=== PATIENT | male | born 1975 | race Two or more races ===

== ENCOUNTER 2024-09-26 16:39 | Emergency (ER) | payer BC, SELFPAY ==
[2024-09-26 16:47] VITALS: BP 139/89; PULSE 74; RESP 20; TEMP 36.9; O2SAT 99; BMI 30.4
--- NOTE | 2024-09-26 16:55 | EDNOTE_ITS ---
Upper Respiratory Inf. RME/HPI General Chief Complaint: Flu Like Symptoms Stated Complaint: FEVER, COUGH, SOB, RIGHT ARM NUMBNESS Time Seen by Provider: 09/26/24 16:43 Arrival date/time: 09/26/24 16:39 49-year-old male with no previous history of lung disorders presents today with complaints of cough and shortness of breath. Patient is currently being treated by primary care provider with azithromycin for acute sinusitis. Patient states he completed the course of Zithromax and then the cough started today he suddenly developed shortness of breath and felt as if he was going to have a syncopal episode. Patient denies any chest pain nausea vomiting fever chills weakness or fatigue. Patient states that he has been taking [id number] medications for the cough with no improvement of symptoms Limitations: no limitations Related Data Previous Rx's ?Medication ?Instructions ?Recorded methylprednisolone 4 mg tablets in 4 mg PO QDAY #21 tabs 05/03/23 a dose pack (Methylpred DP) promethazine 6.25 mg-codeine 10 5 ml PO Q6H PRN cough #118 mL 09/26/24 mg/5 mL syrup Allergies Allergy/AdvReac Type Severity Reaction Status Date / Time No Known Allergies Allergy Verified 05/03/23 11:35 Review of Systems Constitutional Constitutional: Denies chills, Denies fever(s) and Denies headache(s) ENT Ears, Nose, Mouth, and Throat: Denies headache(s) Cardiovascular Cardiovascular: Denies chest pain and Reports dyspnea Respiratory Respiratory: Reports cough and Reports dyspnea Gastrointestinal Gastrointestinal: Denies nausea Musculoskeletal Musculoskeletal: Denies back pain and Denies joint swelling Integumentary/Breasts Skin/Breast: Reports erythema and Reports rash Neurologic Neurologic: Denies confusion and Denies headache(s) Psychiatric Psychiatric: Denies confusion Hematologic/Lymphatic Hematologic/Lymphatic: Denies easy bleeding and Denies easy bruising ED Exam General Limitations: Present no limitations General appearance: Present alert and in no apparent distress Head Head exam: Present atraumatic Eye Eye exam: Present normal appearance, PERRL and EOMI ENT ENT exam: Present normal exam, normal oropharynx and mucous membranes moist Neck Neck exam: Present normal inspection, full ROM and trachea midline Chest Chest inspection: Present normal inspection and symmetric chest wall rise Respiratory Respiratory exam: Present normal lung sounds bilaterally Cardiovascular Cardiovascular exam: Present regular rate, normal rhythm and normal heart sounds Abdominal Exam Abdominal exam: Present soft and normal bowel sounds Extremities Exam Extremities exam: Present normal inspection and full ROM Back Exam Back exam: Present normal inspection and full ROM Neurological Exam Neurological exam: Present alert, oriented X3 and CN II-XII intact Psychiatric Psychiatric exam: Present normal affect and normal mood Skin Skin exam: Present warm, dry, intact and normal color Course Course Course Narrative: 49-year-old male reports with complaints of shortness of breath. Chest x-ray is negative for infiltrates or opacities patient repeat received an albuterol neb treatment which patient reports he is feeling much better is able to take deep breaths and lungs are clear to auscultation bilaterally oxygen saturations are above 95%. Patient is currently being treated for sinusitis so differential diagnosis includes sinusitis upper respiratory infection versus lower respiratory infection versus flu versus COVID versus RSV. Patient is stable nontoxic pain with stable vital signs will be discharged home Quality Measures none Orders Category Date Time Status XR chest 2V Stat Exams 09/26/24 16:55 Completed ALBUTEROL RT 0.5ml [Proventil Rt 0.5ml] Med 09/26/24 17:17 Discontinued 2.5 mg INH X1 ONE Sodium Chloride Rt Cece 0.9% [NS Rt Cece 0.9%] Med 09/26/24 17:17 Active 3 ml INH PRN PRN Vital Signs Vital signs: Vital Signs Temperature 98.5 F 09/26/24 16:47 Pulse Rate 74 09/26/24 16:47 Respiratory Rate 20 09/26/24 16:47 Blood Pressure 139/89 H 09/26/24 16:47 Pulse Oximetry (%) 99 09/26/24 16:47 Oxygen Delivery Method Room Air 09/26/24 16:47 Upper Respiratory Infection Patient data External records reviewed:: None Clinical information provided by:: patient Social determinants that could affect healthcare access:: none Patient has the following chronic illnesses:: none How is presenting disease/condition affected by chronic disease/condition?: no chronic disease Evaluation data The following diagnostics were reviewed and interpreted by me:: lab results and radiology exam(s) Lab and/or radiology exams considered but not ordered:: none Interpretation Summary: Negative for evidence of pneumonia Medications / Prescriptions Medications or Prescriptions considered but not ordered:: none Medication administrations:: Medication Administration History Sodium Chloride (Sodium Chloride Rt Cece 0.9% 3 Ml Nebu) 3 ml INH PRN PRN PRN Reason: SOLN Stop: 10/26/24 17:16 Last Admin: 09/26/24 17:47 Dose: 3 ml Documented By: Discontinued Medications Albuterol (Albuterol Rt 2.5 Mg/0.5 Ml Nebu) 2.5 mg INH X1 ONE Stop: 09/26/24 17:18 Last Admin: 09/26/24 17:47 Dose: 2.5 mg Documented By: KARAN as above Consultations Consultation(s) initiated? (list below): No Diagnosis Upper Respiratory Differential Diagnosis: upper respiratory infection, sinusitis, viral infection, bronchitis and influenza Most likely diagnosis given after review of the tests above:: Viral URI Admission Indicated Admission indicated?: not indicated Admission Request Was there a request for admission?: No Disposition Plan Disposition Plan: Discharge Discharge Attestation Discharge Attestation: The patient and all family members were given an opportunity to ask questions and understood the discharge instructions. Discharge instructions specifically effects, indications for sooner follow up or return to the emergency department, and the expected course of current diagnosis. Patient condition: Stable Discharge Plan Plan Patient Disposition: HOME (Self Care) Prescriptions/Referrals Prescriptions/Med Rec: New promethazine-codeine 6.25-10 mg/5 mL syrup 5 ml PO Q6H PRN (Reason: cough) Qty: 118 0RF No Action methylprednisolone [Methylpred DP] 4 mg tablets,dose pack 4 mg PO QDAY Qty: 21 0RF Referrals: Giuseppe Macias MD [Primary Care Provider] - In 1 week Problem List Clinical Impression: Upper respiratory infection Patient/Caregiver Discharge Instructions Discharge Activity: activity as tolerated Education Materials: ED URI, Viral, No Abx (Adult) Additional Instructions: Chest x-ray is normal you should take medication as directed hydrate well follow with your primary care provider if no improvement in 5 to 7 days. Return to the emergency department if symptoms should worsen Print Language: Frisian Stand Alone Forms: Yary Award Info., Patient Portal Info Letter
--- NOTE | 2024-09-26 16:55 | XR_ITS ---
Examination: PA lateral chest 2 views TECHNIQUE: Upright PA lateral chest 2 views Exam date and time: September 26, 2024 1700 hours Comparison July 24, 2020 INDICATIONS: Fever coughing shortness of breath beginning 6 days ago. FINDINGS: Normal heart size No lobar pneumonia or pulmonary edema The osseous structures are intact IMPRESSION: No pneumonia identified
[2024-09-26 17:47] VITALS: PULSE 73
[2024-09-26] MEDS: SODIUM CHLORIDE RT SOL 0.9% 3 ML NEBU INH (17:47)
[2024-09-26] MEDS: ALBUTEROL RT 2.5 MG/0.5 ML NEBU INH (17:47)
[2024-09-26 17:49] VITALS: PULSE 84; RESP 19; O2SAT 99
== END 2024-09-26 18:53 | disposition home or self-care (01) ==
PROVIDERS: Emergency Provider Emergency Medicine; PCP Family Medicine
DX: J06.9 Acute upper respiratory infection, unspecified (principal)
CPT/HCPCS: 71046; 94640; 99283